=== PATIENT | female | born 1985 | race Caucasian/White ===

== ENCOUNTER 2016-11-10 22:42 | Emergency (ER) | payer SELFPAY ==
[~2016-11-10] VITALS: Ht 175.3 cm; Wt 104.5 kg
[2016-11-10 22:53] VITALS: TEMP 99
[2016-11-10] MEDS ORDERED: ULTRAM 50MG TAB50 MG PO (22:58)
[2016-11-10 23:52] LABS: BASO % 0.4 % (0.0-2.0); EOS # 0.1 (0.0-0.7); EOS % 1.5 % (0-4.0); GRAN # 4.4 (1.4-6.5); GRAN % 55.1 % (42.2-75.2); HEMATOCRIT 38.5 % (37.0-47.0); HEMOGLOBIN 12.1 g/dl (12.5-16.0); LYMPH # 2.8 (1.2-3.4); LYMPH % 35.5 % (20.0-51.0); MEAN CELL VOLUME 81 fl (80.0-100.0); MEAN CORPUSCULAR HEMOGLOBIN 25 pg (27.0-31.0); MEAN CORPUSCULAR HGB CONC 31 g/dl (33.0-37.0); MEAN PLATELET VOLUME 13.5 fl (7.4-10.4); MONO # 0.6 (0.1-0.6); MONO % 7.4 % (1.7-9.3); PLATELET COUNT 185 K/mm3 (130-400); RED BLOOD COUNT 4.76 M/mm3 (4.10-5.30); REDCELL DISTRIBUTION WIDTH-CV 17.1 % (11.5-14.5); WHITE BLOOD COUNT 7.9 K/mm3 (4.8-10.8)
[2016-11-10 23:58] LABS: ADJUSTED CALCIUM 8.9 mg/dL (8.4-10.2); ALBUMIN 4.2 gm/dL (3.5-5.0); BILIRUBIN,TOTAL 0.8 mg/dL (0.0-1.0); CALCIUM 9.1 mg/dL (8.4-10.2); CREATININE, serum 0.8 mg/dL (0.52-1.25); POTASSIUM 4.6 mmol/L (3.4-5.0); TOTAL PROTEIN 7.5 gm/dL (6.4-8.2)
[2016-11-11 00:12] LABS: PH 6 (5-8); SQUAMOUS EPITHELIAL 0-2 /hpf; URINE APPEARANCE Clear; URINE BACTERIA None Seen /hpf; URINE BILIRUBIN Negative (NEGATIVE); URINE BLOOD Negative (NEGATIVE); URINE COLOR Yellow; URINE GLUCOSE Negative (NEGATIVE); URINE KETONE Negative (NEGATIVE); URINE RBC 0-2 /hpf
[2016-11-11] MEDS ORDERED: CIPRO 500MG TA500 MG PO (00:17)
[2016-11-11 00:30] VITALS: BP 129/73; PULSE 78
[2016-11-13] MEDS ORDERED: CEFTIN500 MG PO (13:18)
== END 2016-11-11 00:30 | disposition home or self-care (01) ==
LOC: COL.ER 22:42
PROVIDERS: Emergency Medicine
DX: N39.0 Urinary tract infection, site not specified (principal); B95.1 Streptococcus, group B, as the cause of diseases classified elsewhere; S93.401D Sprain of unspecified ligament of right ankle, subsequent encounter; G43.909 Migraine, unspecified, not intractable, without status migrainosus; X58.XXXD Exposure to other specified factors, subsequent encounter

== ENCOUNTER 2017-07-15 16:11 | Emergency (ER) | payer SELFPAY ==
[~2017-07-15] VITALS: Ht 175.3 cm; Wt 105.0 kg
[~2017-07-15 16:11] MED LIST: CEFTIN500 MG PO; CIPRO 500MG TA500 MG PO; ULTRAM 50MG TAB50 MG PO
[2017-07-15 16:18] VITALS: BP 132/76
[2017-07-15] MEDS ORDERED: CEPHALEXIN500 M1 PO (17:22)
[2017-07-15 17:36] VITALS: PULSE 89; TEMP 98.3
== END 2017-07-15 17:33 | disposition home or self-care (01) ==
LOC: COL.ER 16:11
DX: R22.42 Localized swelling, mass and lump, left lower limb (principal); G43.909 Migraine, unspecified, not intractable, without status migrainosus

== ENCOUNTER 2017-07-27 03:11 | Emergency (ER) | payer SELFPAY ==
[~2017-07-27] VITALS: Ht 175.3 cm; Wt 104.5 kg
[~2017-07-27 03:11] MED LIST changes: +CEPHALEXIN500 M1 PO
[2017-07-27 03:19] VITALS: BP 159/71; TEMP 98.2
[2017-07-27 04:10] LABS: BASO # 0.1 (0.0-0.2); BASO % 0.5 % (0.0-2.0); EOS # 0.1 (0.0-0.7); EOS % 0.5 % (0-4.0); GRAN # 6.9 (1.4-6.5); GRAN % 65.4 % (42.2-75.2); LYMPH # 2.7 (1.2-3.4); LYMPH % 25.3 % (20.0-51.0); MEAN CELL VOLUME 79 fl (80.0-100.0); MEAN CORPUSCULAR HGB CONC 31 g/dl (33.0-37.0); MEAN PLATELET VOLUME 12.5 fl (7.4-10.4); MONO # 0.9 (0.1-0.6); MONO % 8.1 % (1.7-9.3); PLATELET COUNT 230 K/mm3 (130-400); RED BLOOD COUNT 4.67 M/mm3 (4.10-5.30); REDCELL DISTRIBUTION WIDTH-CV 15.8 % (11.5-14.5)
[2017-07-27 04:12] LABS: HEMATOCRIT 36.9 % (37.0-47.0); HEMOGLOBIN 11.5 g/dl (12.5-16.0); MEAN CORPUSCULAR HEMOGLOBIN 25 pg (27.0-31.0)
[2017-07-27] MEDS ORDERED: VOLTAREN 75 DR75 MG PO (04:24)
[2017-07-27 04:45] VITALS: PULSE 87
== END 2017-07-27 04:43 | disposition home or self-care (01) ==
LOC: COL.ER 03:11
PROVIDERS: Emergency Medicine
DX: L52 Erythema nodosum (principal); G43.909 Migraine, unspecified, not intractable, without status migrainosus; Z98.890 Other specified postprocedural states

== ENCOUNTER 2017-11-06 22:17 | Emergency (ER) | payer SELFPAY ==
[~2017-11-06 22:17] MED LIST changes: +VOLTAREN 75 DR75 MG PO
[2017-11-06 22:23] VITALS: TEMP 98.2
[2017-11-06 23:20] LABS: BASO % 0.5 % (0.0-2.0); EOS # 0.1 (0.0-0.7); GRAN # 4.7 (1.4-6.5); GRAN % 53.1 % (42.2-75.2); HEMATOCRIT 39.2 % (37.0-47.0); HEMOGLOBIN 12.3 g/dl (12.5-16.0); LYMPH # 3.3 (1.2-3.4); LYMPH % 37.7 % (20.0-51.0); MEAN CELL VOLUME 82 fl (80.0-100.0); MEAN CORPUSCULAR HEMOGLOBIN 26 pg (27.0-31.0); MEAN CORPUSCULAR HGB CONC 31 g/dl (33.0-37.0); MEAN PLATELET VOLUME 12.1 fl (7.4-10.4); MONO # 0.7 (0.1-0.6); MONO % 7.4 % (1.7-9.3); PLATELET COUNT 267 K/mm3 (130-400); RED BLOOD COUNT 4.78 M/mm3 (4.10-5.30)
[2017-11-06 23:31] LABS: BILIRUBIN,TOTAL 0.2 mg/dL (0.0-1.0); CALCIUM 9.2 mg/dL (8.4-10.2); CREATININE, serum 0.97 mg/dL (0.52-1.25); POTASSIUM 3.8 mmol/L (3.4-5.0); TOTAL PROTEIN 8.1 gm/dL (6.4-8.2)
[2017-11-07 01:30] VITALS: BP 113/86; PULSE 80
== END 2017-11-07 01:32 | disposition home or self-care (01) ==
LOC: COL.ER 22:17
PROVIDERS: Physician Assistant
DX: M79.662 Pain in left lower leg (principal); J45.909 Unspecified asthma, uncomplicated

== ENCOUNTER 2018-01-31 22:53 | Emergency (ER) | payer SELFPAY ==
[~2018-01-31] VITALS: Ht 175.3 cm; Wt 98.6 kg
[2018-01-31 23:05] VITALS: BP 144/74; TEMP 98.2
[2018-02-01 00:32] LABS: COLLECTION METHOD CLEAN CATCH
[2018-02-01 00:33] LABS: BASO % 0.4 % (0.0-2.0); EOS # 0.1 (0.0-0.7); EOS % 0.7 % (0-4.0); GRAN # 6.8 (1.4-6.5); GRAN % 70.2 % (42.2-75.2); HEMOGLOBIN 12.5 g/dl (12.5-16.0); LYMPH % 21.2 % (20.0-51.0); MEAN CELL VOLUME 83 fl (80.0-100.0); MEAN CORPUSCULAR HEMOGLOBIN 26 pg (27.0-31.0); MEAN CORPUSCULAR HGB CONC 31 g/dl (33.0-37.0); MEAN PLATELET VOLUME 12.4 fl (7.4-10.4); MONO # 0.7 (0.1-0.6); MONO % 7.2 % (1.7-9.3); PLATELET COUNT 213 K/mm3 (130-400); RED BLOOD COUNT 4.81 M/mm3 (4.10-5.30); REDCELL DISTRIBUTION WIDTH-CV 14.4 % (11.5-14.5)
[2018-02-01 00:44] LABS: MUCOUS Present /lpf; PH 5 (5-8); SQUAMOUS EPITHELIAL 0-2 /hpf; URINE APPEARANCE Hazy; URINE BACTERIA Rare /hpf; URINE BILIRUBIN Negative (NEGATIVE); URINE BLOOD Negative (NEGATIVE); URINE COLOR Yellow; URINE GLUCOSE Negative (NEGATIVE); URINE KETONE Negative (NEGATIVE); URINE LEUKOCYTE ESTERASE 2+ (NEGATIVE); URINE NITRATE Positive (NEGATIVE); URINE PROTEIN(semi-quant) Negative (NEGATIVE); URINE RBC 0-2 /hpf; URINE UROBILINOGEN Negative (NEGATIVE)
[2018-02-01 00:46] LABS: ALBUMIN 4.1 gm/dL (3.5-5.0); BILIRUBIN,TOTAL 0.3 mg/dL (0.0-1.0); C-REACTIVE PROTEIN 0.8 mg/dL (0.0-0.9); CALCIUM 8.7 mg/dL (8.4-10.2); CREATININE, serum 0.96 mg/dL (0.52-1.25); POTASSIUM 3.8 mmol/L (3.4-5.0); TOTAL PROTEIN 7.6 gm/dL (6.4-8.2)
[2018-02-01] MEDS ORDERED: CIPRO 500MG TA500 MG PO (02:34)
[2018-02-01 02:45] VITALS: PULSE 87
== END 2018-02-01 02:45 | disposition home or self-care (01) ==
LOC: COL.ER 22:53
PROVIDERS: Emergency Medicine
DX: N39.0 Urinary tract infection, site not specified (principal); R10.13 Epigastric pain; Z32.02 Encounter for pregnancy test, result negative
CPT/HCPCS: J0696

== ENCOUNTER 2019-04-07 20:22 | Emergency (ER) | payer SELFPAY ==
[~2019-04-07] VITALS: Ht 175.3 cm; Wt 99.1 kg
[2019-04-07 20:24] VITALS: BP 145/71; TEMP 97.2
[2019-04-07] MEDS ORDERED: CRUTCHES MC (21:15)
[2019-04-07 21:25] VITALS: PULSE 92
== END 2019-04-07 21:25 | disposition home or self-care (01) ==
LOC: COL.ER 20:22
DX: M25.562 Pain in left knee (principal); G43.909 Migraine, unspecified, not intractable, without status migrainosus; Z87.81 Personal history of (healed) traumatic fracture
CPT/HCPCS: J1885; L1846

== ENCOUNTER 2021-10-13 19:52 | Emergency (ER) | payer SELFPAY ==
[~2021-10-13] VITALS: Ht 175.3 cm; Wt 104.5 kg
[~2021-10-13 19:52] MED LIST changes: +CRUTCHES MC
[2021-10-13 20:04] VITALS: BP 133/86; TEMP 98.1
[2021-10-13] MEDS ORDERED: FLEXERIL 1010 MG/TAB PO (21:38)
[2021-10-13] MEDS ORDERED: NORCO 325 MG-51 TAB PO (21:38)
[2021-10-13 23:57] VITALS: PULSE 87
== END 2021-10-13 23:57 | disposition home or self-care (01) ==
LOC: COL.ER 19:52
DX: M54.50 Low back pain, unspecified (principal); Z88.5 Allergy status to narcotic agent; Z28.310 Unvaccinated for COVID-19; X50.0XXA Overexertion from strenuous movement or load, initial encounter
CPT/HCPCS: J1885; J2360

== ENCOUNTER 2022-01-04 18:29 | Emergency (ER) | payer BC ==
[~2022-01-04] VITALS: Ht 175.3 cm; Wt 104.5 kg
[~2022-01-04 18:29] MED LIST changes: +FLEXERIL 1010 MG/TAB PO; +NORCO 325 MG-51 TAB PO
[2022-01-04 19:12] VITALS: TEMP 99.2
[2022-01-04 21:10] VITALS: BP 123/76; PULSE 81
== END 2022-01-04 21:10 | disposition home or self-care (01) ==
LOC: COL.ER 18:29
DX: S50.12XA Contusion of left forearm, initial encounter (principal); S80.02XA Contusion of left knee, initial encounter; Z28.310 Unvaccinated for COVID-19; X50.9XXA Other and unspecified overexertion or strenuous movements or postures, initial encounter; Y93.K1 Activity, walking an animal

== ENCOUNTER 2022-01-05 21:34 | Emergency (ER) | payer BC ==
[~2022-01-05] VITALS: Ht 175.3 cm; Wt 104.5 kg
[2022-01-05 21:51] VITALS: BP 139/89; TEMP 97.2
[2022-01-05 23:30] VITALS: PULSE 73
== END 2022-01-06 | disposition home or self-care (01) ==
LOC: COL.ER 21:34
DX: S06.0X0A Concussion without loss of consciousness, initial encounter (principal); S46.212A Strain of muscle, fascia and tendon of other parts of biceps, left arm, initial encounter; Z28.310 Unvaccinated for COVID-19; Y93.K1 Activity, walking an animal; W18.39XA Other fall on same level, initial encounter
CPT/HCPCS: J0780; J1885